=== PATIENT | female | born 1990 ===

== ENCOUNTER 2018-09-15 09:04 | Emergency (ER) | payer MEDICAID ==
[~2018-09-15] VITALS: Ht 160 cm; Wt 73.5 kg
--- NOTE | 2018-09-15 09:54 | NUR ---
PT STATES SHE FELT FEVERISH LAST NIGHT WITH VOMITING AND KING MULTIPLE TIMES. PT IS 11 WEEKS . NO VAGINAL BLEEDING OR CRAMPING.
[2018-09-15 10:05] LABS: BASOPHILS % (AUTO) 0 % (0-1); EOSINOPHILS # (AUTO) 0.03 x10^3/uL (0-0.4); EOSINOPHILS % (AUTO) 0 % (1-7); LYMPHOCYTES # (AUTO) 0.68 x10^3/uL (1-3.4); LYMPHOCYTES % (AUTO) 9 % (22-44); MD NO; MEAN CORPUSCULAR HEMOGLOBIN 27.5 pg (27.0-34.8); MEAN CORPUSCULAR HGB CONC 32.2 g/dL (32.4-35.8); MEAN CORPUSCULAR VOLUME 85.4 fL (80-100); MEAN PLATELET VOLUME 9.4 fL (7.4-10.4); MONOCYTES # (AUTO) 0.39 x10^3/uL (0.2-0.8); MONOCYTES % (AUTO) 5 % (2-9); NEUTROPHILS % (AUTO) 86 % (42-75); PLATELET COUNT 194 x10^3/uL (130-400); RED BLOOD COUNT 4.87 x10^6/uL (3.82-5.3); RED CELL DISTRIBUTION WIDTH 13.8 % (9.6-15.2)
[2018-09-15] MEDS ORDERED: ONDANSETRON ODT 4 MG ONE (10:20)
[2018-09-15 10:22] LABS: ALBUMIN 3.7 g/dL (3.4-5.0); ANION GAP 8 mmol/L (5-15); CALCIUM 8.7 mg/dL (8.5-10.1); CHLORIDE 107 mmol/L (98-107)
[2018-09-15 10:29] LABS: MICROSCOPIC INDICATED
[2018-09-15] MEDS ORDERED: ONDANSETRON ODT 4 MG PO ONE (10:30)
[2018-09-15 10:44] LABS: ALANINE AMINOTRANSFERASE 26 U/L (12-78); ALKALINE PHOSPHATASE 49 U/L (45-117); BILIRUBIN,TOTAL 0.6 mg/dL (0.2-1.0); CREATININE 0.57 mg/dL (0.55-1.02); TOTAL PROTEIN 7.3 g/dL (6.4-8.2)
[2018-09-15 10:45] LABS: CULTURE INDICATED? YES
--- NOTE | 2018-09-15 10:57 | NUR ---
AFTER MEDICATED FOR NAUSEA PROVIDED ICE CHIPS
[2018-09-15 11:00] VITALS: BP 106/65
== END 2018-09-15 11:57 | disposition home or self-care (01) ==
LOC: ED 10:44
DX: O23.41 Unspecified infection of urinary tract in pregnancy, first trimester (principal); Z3A.11 11 weeks gestation of pregnancy; R11.10 Vomiting, unspecified
CPT/HCPCS: 36415; 76801; 80053; 81001; 84702; 85025; 87086; 99284; Q0162

== ENCOUNTER 2019-03-20 02:28 | Inpatient (IN) | payer BC, MEDICAID ==
[~2019-03-20] VITALS: Ht 160 cm; Wt 74.0 kg
[2019-03-20] MEDS ORDERED: D5%-LACTATED RINGERS 1,000 ML IV SCH (02:46)
[2019-03-20] MEDS ORDERED: OXYTOCIN 30U/ 0.9% NaCL 500ML 500 ML IV ONE (02:46)
[2019-03-20] MEDS ORDERED: FENTANYL PF 100 MCG/2ML ONE (02:47)
[2019-03-20] MEDS ORDERED: OXYTOCIN 30U/ 0.9% NaCL 500ML 500 ML ONE ×2 (02:47→06:31)
[2019-03-20] MEDS ORDERED: NEWBORN KIT ONE (02:47)
[2019-03-20] MEDS ORDERED: FENTANYL PF 100 MCG/2ML IVPush PRN (03:00)
[2019-03-20] MEDS ORDERED: FENTANYL PF 100 MCG/2ML IV PRN (03:00)
[2019-03-20] MEDS ORDERED: PLEASE ENTER HEIGHT AND WEIGHT MC SCH (03:00)
[2019-03-20] MEDS ORDERED: TERBUTALINE 1 MG/ML, 1ML SQ PRN (03:00)
[2019-03-20] MEDS ORDERED: ONDANSETRON 2MG/ML, 2ML IVPush PRN (03:00)
[2019-03-20] MEDS ORDERED: TERBUTALINE 1 MG/ML, 1ML IVPush PRN (03:00)
[2019-03-20] MEDS: LACTATED RINGERS 1,000 ML IV SCH ×2 (03:03→03:41)
[2019-03-20 03:08] LABS: BASOPHILS # (AUTO) 0.04 x10^3/uL (0-0.1); BASOPHILS % (AUTO) 0 % (0-1); EOSINOPHILS # (AUTO) 0.06 x10^3/uL (0-0.4); EOSINOPHILS % (AUTO) 1 % (1-7); LYMPHOCYTES # (AUTO) 2.23 x10^3/uL (1-3.4); LYMPHOCYTES % (AUTO) 21 % (22-44); MD NO; MEAN CORPUSCULAR HEMOGLOBIN 28.1 pg (27.0-34.8); MEAN CORPUSCULAR HGB CONC 32.9 g/dL (32.4-35.8); MEAN CORPUSCULAR VOLUME 85.6 fL (80-100); MEAN PLATELET VOLUME 9.3 fL (7.4-10.4); MONOCYTES # (AUTO) 0.49 x10^3/uL (0.2-0.8); MONOCYTES % (AUTO) 5 % (2-9); NEUTROPHILS % (AUTO) 73 % (42-75); PLATELET COUNT 190 x10^3/uL (130-400); RED BLOOD COUNT 4.99 x10^6/uL (3.82-5.3); RED CELL DISTRIBUTION WIDTH 17.6 % (9.6-15.2)
[2019-03-20] MEDS ORDERED: FENTANYL/BUPIV./NS/PF 250 ML EPIDCONT SCH ×2 (03:18→03:48)
[2019-03-20 03:21] VITALS: BP 109/69
[2019-03-20] MEDS ORDERED: FENTANYL PF 500 MCG, BUPIVACAINE/PF 0.5%, 30ML 62.5 ML in SODIUM CHLORIDE 0.9% 177.5 ML EPIDCONT SCH (03:30)
[2019-03-20] MEDS ORDERED: FENTANYL/BUPIV./NS/PF 0 ML EPIDCONT ONE (03:37)
[2019-03-20] MEDS ORDERED: LACTATED RINGERS 1,000 ML IV SCH (03:48)
[2019-03-20] MEDS ORDERED: NALOXONE 0.4 MG/ML, 1ML IVPush PRN (04:00)
[2019-03-20] MEDS ORDERED: EPHEDRINE 50 MG/ML, 1ML IVPush PRN (04:00)
[2019-03-20] MEDS ORDERED: LACTATED RINGERS 1,000 ML IVBOLUS PRN (04:00)
[2019-03-20] MEDS: OXYTOCIN 30U/ 0.9% NaCL 500ML 500 ML IV SCH ×16 (06:15→23:27)
[2019-03-20] MEDS ORDERED: MAGNESIUM HYDROXIDE 8%, 30ML UDC PO PRN (06:30)
[2019-03-20] MEDS ORDERED: ONDANSETRON 2MG/ML, 2ML IV PRN (06:30)
[2019-03-20] MEDS ORDERED: OXYcodone IR 5MG TABLET PO PRN (06:30)
[2019-03-20] MEDS ORDERED: TRANEXAMIC ACID 100 MG/ML, 10ML IV ONE (06:30)
[2019-03-20] MEDS ORDERED: OXYcodone/APAP 5/325MG TABLET PO PRN (06:30)
[2019-03-20] MEDS ORDERED: ACETAMINOPHEN 325 MG TABLET PO PRN (06:30)
[2019-03-20] MEDS ORDERED: CARBOPROST TROMETHAMINE 250 MCG/ML, 1ML IM PRN (06:30)
[2019-03-20] MEDS ORDERED: METHYLERGONOVINE 0.2 MG/ML IM PRN (06:30)
[2019-03-20] MEDS ORDERED: SIMETHICONE 80 MG CHEW TAB PO PRN (06:30)
[2019-03-20] MEDS ORDERED: IBUPROFEN 800 MG TABLET PO PRN (06:30)
[2019-03-20] MEDS ORDERED: DOCUSATE 100 MG CAPSULE PO PRN (06:30)
[2019-03-20] MEDS ORDERED: OXYTOCIN 10 UNITS/ML, 1ML IM PRN (06:30)
[2019-03-20] MEDS ORDERED: MISOPROSTOL 200 MCG TABLET PR ONE (07:30)
[2019-03-20 08:10] VITALS: BP 115/77
[2019-03-20] MEDS: PRENATAL VIT/IRON/FA 1 EACH TABLET PO SCH (09:00)
[2019-03-20 12:17] VITALS: BP 112/68
[2019-03-20] MEDS ORDERED: FLU VACC QS2019-20 36MOS UP/PF 0.5 ML IM-VACC ONE (13:00)
[2019-03-20 17:13] VITALS: BP 120/77
[2019-03-20 20:00] VITALS: BP 115/75
[2019-03-20 23:15] LABS: BASOPHILS # (AUTO) 0.03 x10^3/uL (0-0.1); BASOPHILS % (AUTO) 0 % (0-1); EOSINOPHILS # (AUTO) 0.05 x10^3/uL (0-0.4); EOSINOPHILS % (AUTO) 1 % (1-7); LYMPHOCYTES # (AUTO) 1.65 x10^3/uL (1-3.4); LYMPHOCYTES % (AUTO) 18 % (22-44); MD NO; MEAN CORPUSCULAR HEMOGLOBIN 27.9 pg (27.0-34.8); MEAN CORPUSCULAR HGB CONC 32.7 g/dL (32.4-35.8); MEAN CORPUSCULAR VOLUME 85.4 fL (80-100); MEAN PLATELET VOLUME 9.9 fL (7.4-10.4); MONOCYTES # (AUTO) 0.67 x10^3/uL (0.2-0.8); MONOCYTES % (AUTO) 7 % (2-9); NEUTROPHILS # (AUTO) 6.73 x10^3/uL (1.8-6.8); NEUTROPHILS % (AUTO) 74 % (42-75); PLATELET COUNT 186 x10^3/uL (130-400); RED BLOOD COUNT 4.62 x10^6/uL (3.82-5.3); RED CELL DISTRIBUTION WIDTH 17.5 % (9.6-15.2)
[2019-03-21 00:35] VITALS: BP 108/70
[2019-03-21] MEDS: OXYTOCIN 30U/ 0.9% NaCL 500ML 500 ML IV SCH ×5 (00:53→06:37)
[2019-03-21 04:23] VITALS: BP 98/62
[2019-03-21 07:05] VITALS: BP 104/68
[2019-03-21] MEDS: PRENATAL VIT/IRON/FA 1 EACH TABLET PO SCH (08:21)
[2019-03-21] MEDS ORDERED: IBUP-1222 PO (11:38)
[2019-03-21] MEDS ORDERED: OXYC-302 PO (11:39)
[2019-03-21] MEDS ORDERED: IBUP-1223 PO (11:40)
== END 2019-03-21 13:01 | disposition home or self-care (01) | DRG 560 ==
LOC: LDOP 02:28 → LDIP 02:44 → 2NW 08:00
PROVIDERS: ADMIT Obstetrics & Gynecology; ATTEND Obstetrics & Gynecology
PROC: 10E0XZZ Delivery of Products of Conception, External Approach (ICD-10-PCS; principal; 2019-03-20)
PROC: 10907ZC Drainage of Amniotic Fluid, Therapeutic from Products of Conception, Via Natural or Artificial Opening (ICD-10-PCS; 2019-03-20)
PROC: 3E0R3BZ Introduction of Anesthetic Agent into Spinal Canal, Percutaneous Approach (ICD-10-PCS; 2019-03-20)
PROC: 00HU33Z Insertion of Infusion Device into Spinal Canal, Percutaneous Approach (ICD-10-PCS; 2019-03-20)
DX: O80 Encounter for full-term uncomplicated delivery (principal); Z37.0 Single live birth; Z3A.37 37 weeks gestation of pregnancy
CPT/HCPCS: 36415; 85025; 86850; 86900; 90686; G0378; J3010; J2590; J7120